=== PATIENT | male | born 1955 | race Caucasian/White ===

== ENCOUNTER 2017-03-02 21:52 | Observation (INO) | payer OTHER ==
[~2017-03-02] VITALS: Ht 175.3 cm; Wt 96.5 kg
[2017-03-02 22:39] LABS: HEMATOCRIT 41.4 % (38.0-50.0); MCH 30.3 PG (29.0-34.0); MCHC 33.3 G/DL (30.0-36.0); MEAN PLAT.VOLUME 11.3 uM^3 (9.0-12.4); PLATELET COUNT 184 K/uL (156-360); RBC DIS.WIDTH-CV 12.7 % (11.8-14.6); RED BLOOD COUNT 4.55 M/uL (4.00-5.50)
[2017-03-02 23:02] LABS: TROP-I INTERPRETATION NEGATIVE; TROPONIN-I < 0.01 ng/mL (0.0-0.30)
[2017-03-02 23:22] LABS: ANION GAP 9 MEQ/L (2-14); CHLORIDE 109 MEQ/L (99-109); GFR ESTIMATE (CALCULATED) > 59 mL/min/; GLUCOSE 96 mg/dL (70-99); POTASSIUM 4.7 MEQ/L (3.7-5.4); SAMPLE HEMOLYSIS CHECK 2; SAMPLE ICTERIC CHECK 0; SAMPLE LIPEMIA CHECK 0; SODIUM 141 MEQ/L (136-147); UREA NITROGEN (BUN) 23 mg/dL (9-23)
[2017-03-03 00:14] LABS: POTASSIUM 4.1 mEq/L (3.7-5.4)
[2017-03-03] MEDS ORDERED: ANTACID EXTRA1 EACH PO (01:00)
[2017-03-03 03:40] LABS: ALKALINE PHOSPHATASE 44 IU/L (3-129); TOTAL BILIRUBIN 0.3 MG/DL (0.0-1.0)
[2017-03-03 04:14] LABS: LIPASE 38 U/L (1.0-51.0)
[2017-03-03 05:31] LABS: EOSINOPHIL (%) 1.8 % (0-5); EOSINOPHIL COUNT 0.2 K/uL (0-0.3); HEMATOCRIT 40.9 % (38.0-50.0); IMMATURE GRANULOCYTE (%) 0.4 % (0.0-0.7); INSTRUMENT ABS NEUTROPHIL CT 7.7 K/uL; LYMPHOCYTE COUNT 2.4 K/uL (1.0-2.8); MCH 30.6 PG (29.0-34.0); MCHC 33.3 G/DL (30.0-36.0); MCV 92.1 FL (86-99); MEAN PLAT.VOLUME 10.9 uM^3 (9.0-12.4); MONOCYTE (%) 7.7 % (3-12); MONOCYTE COUNT 0.9 K/uL (0-0.8); NEUTROPHIL (%) 68.7 % (45-76); NEUTROPHIL COUNT 7.7 K/uL (1.8-6.4); PLATELET COUNT 182 K/uL (156-360); RBC DIS.WIDTH-CV 12.7 % (11.8-14.6); RED BLOOD COUNT 4.44 M/uL (4.00-5.50); WHITE BLOOD COUNT 11.2 K/uL (4.1-10.2)
[2017-03-03 05:45] LABS: TROP-I INTERPRETATION NEGATIVE; TROPONIN-I < 0.01 ng/mL (0.0-0.30)
[2017-03-03 06:10] VITALS: BP 123/86
[2017-03-03 06:40] LABS: HDL CHOLESTEROL 34 MG/DL (Desirable>=40); LDL CHOLESTEROL 121 mg/dL (Desirable<100); NON-HDL CHOLESTEROL 143 mg/dL (Desirable<160); TOTAL CHOLESTEROL 177 mg/dL (Desirable<200); TRIGLYCERIDES 111 MG/DL (Normal: <150)
[2017-03-03 07:30] VITALS: BP 112/67
[2017-03-03 11:00] VITALS: BP 114/66
[2017-03-03 12:00] LABS: TROP-I INTERPRETATION NEGATIVE; TROPONIN-I < 0.01 ng/mL (0.0-0.30)
[2017-03-03] MEDS ORDERED: ASPIR-LOW81 MG PO (12:54)
== END 2017-03-03 15:07 | disposition home or self-care (01) ==
LOC: EME 21:52 → ENPENDDIS 03-03 → EDOF 03-03 01:52 → ENRESERV 03-03 01:53 → 4EAST 03-03 05:38
PROVIDERS: Emergency Medicine; Hospitalist
DX: I20.9 Angina pectoris, unspecified (principal); Z82.49 Family history of ischemic heart disease and other diseases of the circulatory system; F17.200 Nicotine dependence, unspecified, uncomplicated; E66.9 Obesity, unspecified; Z68.31 Body mass index [BMI] 31.0-31.9, adult; D72.829 Elevated white blood cell count, unspecified
CPT/HCPCS: 71020; 80048; 80061; 80076; 81003; 83690; 84484; 84999; 85025; 85027; 87086; 93005; 99281; 99285; G0378